=== PATIENT | male | born 1990 | race Caucasian/White ===

== ENCOUNTER 2017-12-26 10:46 | Emergency (ER) | payer OTHER ==
[~2017-12-26] VITALS: Ht 175.3 cm; Wt 102.1 kg
[~2017-12-26 10:46] MED LIST: DEXTROAMP-AMPHE20 M1 PO
[2017-12-26 10:52] VITALS: BP 114/76
[2017-12-26 12:42] LABS: ABSOLUTE BASOPHIL COUNT 0 /CUMM (0.0-0.2); ABSOLUTE EOSINOPHIL COUNT 0.1 /CUMM (0.0-0.7); ABSOLUTE GRANULOCYTE CT 3.4 /CUMM (1.4-6.5); ABSOLUTE MONOCYTE COUNT 0.4 /CUMM (0.10-0.60); BASOPHIL % 0.7 % (0.0-2.0); EOSINOPHIL % 1.7 % (0-5); GRANULOCYTE % 57.2 % (42.2-75.2); HEMATOCRIT 45.6 % (42-52); MEAN CORPUSCULAR HGB 28.3 PG (27.0-31.0); MEAN CORPUSCULAR HGB CONC 34.3 G/DL (33.0-37.0); MEAN CORPUSCULAR VOLUME 82.6 FL (80.0-94.0); MEAN PLATELET VOLUME 7.8 FL (7.4-10.4); PLATELET COUNT 296 /CUMM (130-400); RBC DISTRIBUTION WIDTH 12.6 % (11.5-14.5); RED BLOOD CELL CT 5.52 /CUMM (4.70-6.10); WHITE BLOOD CELL COUNT 5.9 /CUMM (4.8-10.8)
[2017-12-26] MEDS ORDERED: METOPROLOL SUC100 M2 PO (12:47)
[2017-12-26] MEDS ORDERED: VITAMIN D250000 UNIT PO (12:48)
--- NOTE | 2017-12-26 13:11 | ED GENERAL ADULT ---
History of Present Illness General Chief Complaint: General Adult Stated Complaint: NEEDLE STICK AT WORK Source: patient Exam Limitations: no limitations Vital Signs & Intake/Output Vital Signs & Intake/Output Vital Signs Date Time Temp Pulse Resp B/P B/P Pulse O2 O2 Flow FiO2 Mean Ox Delivery Rate 12/26 1052 97.0 110 18 114/76 98 Room Air ED Intake and Output 12/27 0000 12/26 1200 Intake Total Output Total Balance Patient 225 lb Weight Allergies Coded Allergies: No Known Allergies (01/25/17) Reconcile Medications Ergocalciferol (Vitamin D2) (Vitamin D2) 50,000 UNIT CAPSULE 1 CAP PO QW SUPPLEMENT (Reported) Metoprolol Succinate 100 MG TAB.ER.24H 1 TAB PO DAILY HEART/BP (Reported) Triage Note: 27M SUSTAINED NEEDLESTICK TO LEFT THUMB WHILE ATTEMPTING IV INSERTION ON A PATIENT IN MOVING AMBULANCE. WASHED HANDS IMMEDIATELY AFTER EXPOSURE. EXPOSURE OCCURRED APPROX 20 MINS AGO. SOURCE PATIENT ALSO IN ED. Triage Nurses Notes Reviewed? 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 He does report seeing a speck of blood however thinks that this was the patient's and not his own as the wound was very minimal. (Cherie Herrmann) Past History Travel History Traveled to [place] past 21 day No Medical History Any Pertinent Medical History? see below for history Neurological: NONE EENT: NONE Cardiovascular: TACHYCARDIA Respiratory: NONE Gastrointestinal: NONE Hepatic: NONE Renal: NONE Musculoskeletal: NONE Psychiatric: ADHD Endocrine: NONE Blood Disorders: NONE Cancer(s): NONE Surgical History Surgical History: none Psychosocial History What is your primary language Citizen Of [place] Tobacco Use: Never used Family History Hx Contributory? No (Cherie Herrmann) Review of Systems Review of Systems Constitutional: Reports: no symptoms. EENTM: Reports: no symptoms. Respiratory: Reports: no symptoms. Cardiovascular: Reports: no symptoms. GI: Reports: no symptoms. Genitourinary: Reports: no symptoms. Musculoskeletal: Reports: no symptoms. Skin: Reports: see HPI. Neurological/Psychological: Reports: no symptoms. Hematologic/Endocrine: Reports: no symptoms. Immunologic/Allergic: Reports: no symptoms. All Other Systems: Reviewed and Negative (Cherie Herrmann) Physical Exam Physical Exam General Appearance: well developed/nourished, no apparent distress, alert, awake , comfortable Head: atraumatic, normal appearance Eyes: Bilateral: normal appearance. Ears, Nose, Throat: hearing grossly normal Respiratory: no respiratory distress Extremities: normal inspection, normal capillary refill, normal range of motion, no obvious lesion on lateral right thumb where fingerstick occurred. no tenderness to palpation. no active bleed. Neurologic/Psych: no motor/sensory deficits, awake, alert, oriented x 3, normal gait, normal mood/affect Skin: intact, normal color, warm/dry Core Measures ACS in differential dx? No CVA/TIA Diagnosis: No Sepsis Present: No Sepsis Focused Exam Completed? No (Cherie Herrmann) Progress Differential Diagnoses I considered the following diagnoses in my evaluation of the patient: [ needlestick injury, infection] Plan of Care: Orders Procedure Date/time Status HIV EXPOSURE/NEEDLESTICK 12/26 1214 Complete HUMAN BETA HCG SCREEN 12/26 1214 Complete HEPT C ANTIBODY 12/26 1214 Complete HEPT B SURFACE ANTIBODY 12/26 1214 Complete GAMMA GLUTAMYL TRANSFERASE 12/26 1214 Complete COMPREHENSIVE METABOLIC PANEL 12/26 1214 Complete CBC WITHOUT DIFFERENTIAL 12/26 1214 Complete TRNSFRASE ASPART AMINO 12/26 1214 Complete TRNSFRAS ALANINE AMINO 12/26 121 Complete Laboratory Tests 12/26/17 1233: Anion Gap 15, Estimated GFR > 60, BUN/Creatinine Ratio 23.0, Glucose 103 H, Calcium 10.5 H, Total Bilirubin 0.7, GGT 28, AST 46, ALT 40, Alkaline Phosphatase 74, Total Protein 8.3 H, Albumin 5.2 H, Globulin 3.1, Albumin/ Globulin Ratio 1.7, Total Beta HCG NEGATIVE, CBC w Diff NO MAN DIFF REQ, RBC 5.52, MCV 82.6, MCH 28.3, MCHC 34.3, RDW 12.6, MPV 7.8, Gran % 57.2, Lymphocytes % 33.1, Monocytes % 7.3, Eosinophils % 1.7, Basophils % 0.7, Absolute Granulocytes 3.4, Absolute Lymphocytes 2.0, Absolute Monocytes 0.4, Absolute Eosinophils 0.1, Absolute Basophils 0, Hep Bs Antibody REACTIVE, Hepatitis C Antibody NONREACTIVE, HIV 1&2 Antibody NONREACTIVE 27-year-old male with needlestick injury 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 Needlestick to lateral right thumb. Patient advised to follow-up with occupational medicine outpatient. Return to the emergency department with any new or worsening symptoms. Initial ED EKG: none (Cherie Hrermann) Departure Departure Disposition: HOME OR SELF CARE Condition: Stable Clinical Impression Primary Impression: Needle exposure Qualifiers: Encounter type: initial encounter Qualified Code: X58.XXXA - Exposure to other specified factors, initial encounter Referrals: Joana Silva DO (PCP/Family) Additional Instructions: Keep area clean and dry. Follow-up with your primary care outpatient. Follow- up with emergency department regarding blood work results. Return to the emergency department with any new or worsening symptoms. Departure Forms: Customer Survey General Discharge Information (Cherie Herrmann) PA/LEGAL ADMINISTRATOR Co-Sign Statement Statement: ED Attending supervision documentation- I saw and evaluated the patient. I have also reviewed all the pertinent lab results and diagnostic results. I agree with the findings and the plan of care as documented in the PA's/LEGAL ADMINISTRATOR's documentation. x I have reviewed the ED Record and agree with the PA's/LEGAL ADMINISTRATOR's documentation. [] Additions or exceptions (if any) to the PAs/LEGAL ADMINISTRATOR's note and plan are summarized below: [] (Kaleigh CASTRO,Jake) Procedures Comments Comments: Irrigated needlestick site with 30 cc normal saline, cleaned with Betadine, bacitracin applied to the area, bandage applied to the area. (Cherie Herrmann) Critical Care Note Critical Care Note Critical Care Time: non-applicable (Cherie Herrmann)
== END 2017-12-26 13:20 ==
LOC: ERH 10:46
PROVIDERS: Physician Assistant
DX: S61.031A Puncture wound without foreign body of right thumb without damage to nail, initial encounter (principal); W46.1XXA Contact with contaminated hypodermic needle, initial encounter; Y92.238 Other place in hospital as the place of occurrence of the external cause; Y93.89 Activity, other specified
CPT/HCPCS: 86803; 87389